=== PATIENT | female | born 1995 | race African-American/Black ===

== ENCOUNTER 2019-03-08 13:27 | Emergency (ER) | payer MEDICAID ==
[2019-03-08] MEDS ORDERED: KETOROLAC TROMETHAMINE INJ/PF 30 MG/1 ML SDV IV ONE (14:17)
--- NOTE | 2019-03-08 14:17 | ER Document Report ---
ED Medical Screen (RME) - General Chief Complaint: Headache Stated Complaint: HEADACHE Time Seen by Provider: 03/08/19 14:12 Notes: Patient is a 23-year-old female presents to the emergency department for generalized headache for the last 24 hours. Patient is 6 days status post vaginal delivery. States during her she had no problems with her blood pressure, denies any history of eclampsia or preeclampsia. Patient denies any history of migraines or recurrent headaches. Patient is complaining of generalized nausea with generalized headache "all over". GENERAL: Alert, interacts well. No acute distress. HEAD: Normocephalic, atraumatic. EYES: Pupils equal, round, and reactive to light. Extraocular movements intact. NECK: Full range of motion. Supple. Trachea midline. I have greeted and performed a rapid initial assessment of this patient. A comprehensive ED assessment and evaluation of the patient, analysis of test results and completion of the medical decision making process will be conducted by additional ED providers. I have specifically instructed the patient or family members with the patient to immediately return to any nursing staff should anything change in the patient's condition or with their chief complaint. No nuchal rigidity noted This medical record was dictated with voice recognizing software. There may be grammatical, syntax errors that are unintended. TRAVEL OUTSIDE OF THE [place] IN LAST 30 DAYS: No - Related Data Allergies/Adverse Reactions: No Known Allergies Allergy (Verified 03/08/19 13:32) Physical Exam - Vital signs Vitals: Temp Pulse Resp BP Pulse Ox 98.0 F 102 H 18 150/88 H 100 03/08/19 13:33 03/08/19 13:33 03/08/19 13:33 03/08/19 13:33 03/08/19 13:33 Course - Vital Signs Vital signs: Temp Pulse Resp BP Pulse Ox 98.0 F 102 H 18 150/88 H 100 03/08/19 13:33 03/08/19 13:33 03/08/19 13:33 03/08/19 13:33 03/08/19 13:33
[2019-03-08] MEDS ORDERED: METOCLOPRAMIDE HCL INJ/PF 10 MG/2 ML SDV IV ONE (14:18)
[2019-03-08 16:15] LABS: ABSOLUTE EOSINOPHILS # (AUTO) 0.1 10^3/uL (0.0-0.6); ABSOLUTE LYMPHOCYTES (AUTO) 2.4 10^3/uL (0.5-4.7); ABSOLUTE MONOCYTES (AUTO) 0.8 10^3/uL (0.1-1.4); ABSOLUTE NEUT (AUTO) 7.5 10^3/uL (1.7-8.2); BASOPHILS % (AUTO) 0.4 % (0-2); EOSINOPHILS % (AUTO) 1.2 % (0-6); HEMATOCRIT 36.1 % (36.0-47.0); HEMOGLOBIN 12.1 g/dL (12.0-15.5); LYMPHOCYTES % (AUTO) 22.3 % (13-45); MEAN CORPUSCULAR HEMOGLOBIN 28.8 pg (27.0-33.4); MEAN CORPUSCULAR HGB CONC 33.5 g/dL (32.0-36.0); MEAN CORPUSCULAR VOLUME 86 fl (80-97); MONOCYTES % (AUTO) 7.4 % (3-13); PLATELET COUNT 227 10^3/uL (150-450); SEGMENTED NEUTROPHILS % (AUTO) 68.7 % (42-78); TOTAL CELLS COUNTED % (AUTO) 100 %; WHITE BLOOD COUNT 10.9 10^3/uL (4.0-10.5)
[2019-03-08 16:32] LABS: ALANINE AMINOTRANSFERASE 36 U/L (9-52); ALBUMIN 3.6 g/dL (3.5-5.0); ALKALINE PHOSPHATASE 82 U/L (38-126); ANION GAP 7 (5-19); ASPARTATE AMINO TRANSFERASE 28 U/L (14-36); BILIRUBIN,DIRECT 0.3 mg/dL (0.0-0.4); BILIRUBIN,TOTAL 0.7 mg/dL (0.2-1.3); BLOOD UREA NITROGEN 12 mg/dL (7-20); CALCIUM 9.4 mg/dL (8.4-10.2); CARBON DIOXIDE 27 mmol/L (22-30); CHLORIDE 105 mmol/L (98-107); GLUCOSE 86 mg/dL (75-110); POTASSIUM 3.8 mmol/L (3.6-5.0); SODIUM 139.3 mmol/L (137-145); TOTAL PROTEIN 6.9 g/dL (6.3-8.2)
[2019-03-08 16:38] LABS: APPEARANCE,URINE SLIGHTLY-CLOUDY; BILIRUBIN,URINE NEGATIVE (NEGATIVE); COLOR,URINE YELLOW; GLUCOSE, URINE NEGATIVE (NEGATIVE); KETONES,URINE 20 mg/dL (NEGATIVE); LEUKOCYTE ESTERASE,URINE LARGE (NEGATIVE); NITRITE,URINE NEGATIVE (NEGATIVE); PROTEIN,URINE NEGATIVE (NEGATIVE)
--- NOTE | 2019-03-08 16:58 | ER Document Report ---
ED Headache - General Chief Complaint: Headache Stated Complaint: HEADACHE Time Seen by Provider: 03/08/19 14:12 Information source: Patient Notes: Patient is a 23-year-old female status post normal vaginal delivery this past Sunday who presents with a headache starting yesterday to the frontal region. It came on slowly. Throbbing in quality, constant, no aggravating or relieving factors. Nausea without vomiting. No blurry vision or neck pain. No weakness or numbness. Patient still has some minimal vaginal bleeding and cramping consistent with delivery. No history of headaches. No recent trauma. Patient had no elevated blood pressure with . TRAVEL OUTSIDE OF THE [place] IN LAST 30 DAYS: No - Related Data Allergies/Adverse Reactions: No Known Allergies Allergy (Verified 03/08/19 13:32) Past Medical History - Social History Smoking Status: Never Smoker Frequency of alcohol use: None Drug Abuse: None Family History: Reviewed & Not Pertinent Patient has suicidal ideation: No Patient has homicidal ideation: No Renal/ Medical History: Denies: Hx Peritoneal Dialysis Review of Systems - Review of Systems Constitutional: denies: Fever EENT: denies: Eye discharge, Nose discharge Cardiovascular: denies: Chest pain Respiratory: denies: Short of breath Gastrointestinal: denies: Vomiting Genitourinary: denies: Dysuria Musculoskeletal: denies: Leg swelling Skin: Other - no hives. denies: Rash Neurological/Psychological: Other - no slurred speech -: Yes All other systems reviewed and negative Physical Exam - Vital signs Vitals: Temp Pulse Resp BP Pulse Ox 98.0 F 102 H 18 150/88 H 100 03/08/19 13:33 03/08/19 13:33 03/08/19 13:33 03/08/19 13:33 03/08/19 13:33 Notes: Reviewed vital signs and nursing note as charted by RN. CONSTITUTIONAL: Alert and oriented and responds appropriately to questions. Well-appearing; well-nourished HEAD: Normocephalic; atraumatic EYES: PERRL; full extraocular range of motion; no nystagmus ENT: Normal nose; no rhinorrhea; moist mucous membranes; pharynx without lesions noted NECK: Supple without meningismus; full painless range of motion; non-tender; no cervical lymphadenopathy, no masses CARD: Regular rate and rhythm; no murmurs; symmetric distal pulses RESP: Normal chest excursion without splinting or tachypnea; breath sounds clear and equal bilaterally ABD/GI: Normal bowel sounds; non-distended; soft, non-tender; no palpable organomegaly or masses BACK: The back appears normal and is non-tender to palpation EXT: Normal ROM in all joints; non-tender to palpation; no edema present SKIN: No acute lesions noted NEURO: CN 2-12 intact; 5/5 bilateral upper and lower extremity strength with sensation intact to light touch PSYCH: The patient's mood and manner are appropriate. Grooming and personal hygiene are appropriate. Course - Re-evaluation Re-evalutation: Given the above history and physical examination in this very well-appearing female with a normal spontaneous vaginal delivery with no hypertension of who presents with a slow development of a frontal headache without blurry vision, fever, or focal neurological deficit, we will obtain an MRI/MRV, basic labs, urine analysis to check for protein, liver panel, and reassess. 03/08/19 16:58 Labs as recorded. No transaminitis. No protein in the urine. Patient does have a positive leukocyte Estrace mixed with red blood cells and white blood cells. No symptoms of dysuria. We will send a urine culture. I spoke to the radiologist Dr. Burnham who recommended performing an MRI/MRA typing in the MRI instructions to perform an MRV. I have called the residential service technician to discuss this. Given the above history and physical I do believe acute bacterial meningitis, subarachnoid hemorrhage, acute angle-closure glaucoma, all to be extremely unlikely. 03/08/19 17:43 Patient is unwilling to go through the MRI scanner. I have provided Ativan and she still states she is unable to have this test performed. I have explained the seriousness of this possible condition. She understands. She still refuses to go back to the MRI machine. I have called the radiologist once again and discussed the case. He has asked me to order a CTA of the head with a venogram as well performed. Pt signed out to my partner for further care. - Vital Signs Vital signs: Temp Pulse Resp BP Pulse Ox 97.5 F 77 17 120/82 100 03/08/19 19:31 03/08/19 19:31 03/08/19 19:31 03/08/19 19:31 03/08/19 19:31 - Laboratory Result Diagrams: 03/08/19 15:36 03/08/19 15:36 Laboratory results interpreted by me: 03/08/19 03/08/19 15:36 15:36 WBC 10.9 H Urine Ketones 20 H Urine Blood LARGE H Urine Urobilinogen 4.0 H Ur Leukocyte Esterase LARGE H Discharge - Discharge Clinical Impression: Headache Condition: Good Disposition: HOME, SELF-CARE Instructions: Headache ([facility]) Prescriptions: Butalb/Acetaminophen/Caffeine [Fioricet (50-325-40 mg) Tablet] 1 tab PO Q6H PRN #30 tab PRN Reason: Promethazine HCl [Phenergan 25 mg Tablet] 25 mg PO QID PRN #30 tablet PRN Reason:
[2019-03-08] MEDS ORDERED: LORAZEPAM INJ 2 MG/1 ML VIAL IV ONE (17:19)
[2019-03-08] MEDS ORDERED: NORMAL SALINE 1000 ML 1,000 ML IV ONE (17:59)
[2019-03-08] MEDS ORDERED: MORPHINE SULFATE 10 MG/ML INJ IV ONE (18:13)
[2019-03-08] MEDS ORDERED: ONDANSETRON HCL INJ/PF 4 MG/2 ML SDV IV ONE (18:53)
--- NOTE | 2019-03-08 18:58 | RADIOLOGY REPORT (SQ) ---
EXAM DESCRIPTION: CTA HEAD COMPLETED DATE/TIME: 03/08/2019 6:39 pm REASON FOR STUDY: 12; with CTV venogram COMPARISON: None. TECHNIQUE: Post IV contrast scanning, thin section axial imaging through the brain to evaluate the a rterial and venous structures. Source and MIP images are saved and reviewed on PACS. Advanced 3D imaging as volume-rendering, MIPs, SSD performed? yes All CT scanners at this facility use dose modulation, iterative reconstruction, and/or weight based d osing when appropriate to reduce radiation dose to as low as reasonably achievable (ALARA). [facility]: Dose Right [facility]: CareDose [facility]: Dose Right [facility]: Teradose 4D [facility]: [facility] CONTRAST TYPE AND DOSE: contrast/concentration: Isovue 350.00 mg/ml; Total Contrast Delivered: 70.0 ml; Total Saline Delivered: 75.0 ml RENAL FUNCTION: None required. The patient is less than 50 years old. LIMITATIONS: None. FINDINGS: [place]: The anterior, middle, posterior cerebral arteries are all patent. No ev idence of aneurysm or focal stenosis. POSTERIOR CIRCULATION: The distal vertebral arteries are patent as is the basilar artery. No aneurysm . DURAL SINUSES: The major dural sinuses demonstrate normal opacification without evidence of thrombos is. BRAIN: No gross enhancing lesions as visualized. BONES: Intact as visualized. SINUSES: No fluid or mucosal thickening. OTHER: No other significant finding. IMPRESSION: Normal morphology and appearance of the [place] of [place]. No evidence of dural venous t hrombosis. Grossly normal CT appearance of the brain. TECHNICAL DOCUMENTATION: JOB ID: [id number] Quality ID # [id number]: Final reports with documentation of one or more dose reduction techniques (e.g., Au tomated exposure control, adjustment of the mA and/or kV according to patient size, use of iterative reconstruction technique) 2010 [employer]- All Rights Reserved Reading location - IP/workstation name: [email or web address]
--- NOTE | 2019-03-08 19:16 | ER Document Report ---
ED Headache - General Chief Complaint: Headache Stated Complaint: HEADACHE Time Seen by Provider: 03/08/19 14:12 Notes: 23-year-old female who is . Was signed out to me by my partner Dr. Hickman. Patient was pending a CT scan of the brain to rule out venous thrombus. Please see his note for HPI and review of systems. TRAVEL OUTSIDE OF THE [place] IN LAST 30 DAYS: No - Related Data Allergies/Adverse Reactions: No Known Allergies Allergy (Verified 03/08/19 13:32) Past Medical History - General Information source: Patient - Social History Smoking Status: Never Smoker Frequency of alcohol use: None Drug Abuse: None Family History: Reviewed & Not Pertinent Patient has suicidal ideation: No Patient has homicidal ideation: No Renal/ Medical History: Denies: Hx Peritoneal Dialysis Review of Systems - Review of Systems Neurological/Psychological: Headaches. denies: Lost consciousness, Numbness, Tingling -: Yes All other systems reviewed and negative Physical Exam - Vital signs Vitals: Temp Pulse Resp BP Pulse Ox 98.0 F 102 H 18 150/88 H 100 03/08/19 13:33 03/08/19 13:33 03/08/19 13:33 03/08/19 13:33 03/08/19 13:33 - Neurological Neuro grossly intact: Yes Cognition: Normal Orientation: AAOx4 Kimberly Coma Scale Eye Opening: Spontaneous [place] Coma Scale Verbal: Oriented [place] Coma Scale Motor: Obeys Commands [place] Coma Scale Total: 15 Speech: Normal Cranial nerves: Normal Cerebellar coordination: Normal Additional motor exam normals: Equal document manager. No: Weakness Course - Re-evaluation Re-evalutation: 03/08/19 19:12 The patient was signed out to me by Dr. Hickman pending diagnostics. I taken the patient over. Patient was given additional pain medicine. Concern was for dural venous thrombosis. She could not tolerate MRI therefore we got a CT venous study which was negative. She is feeling much better after IV fluids pain and nausea medicine. She is comfortable going home. I spoke with her about when to return. We spoke about lumbar puncture. At this time I do not believe she has a subarachnoid hemorrhage there is no thunderclap no rapid onset not worst headache of life. However the next logical step would be to perform a lumbar puncture. Spoke with the patient about this she certainly does not want this at this time I gave her the information about morbidity mortality associated with subarachnoid hemorrhage. Verbalized understanding she is comfortable going home. We will return if the discomfort returns. Or any other other issue of concern - Vital Signs Vital signs: Temp Pulse Resp BP Pulse Ox 98.0 F 102 H 18 136/94 H 100 03/08/19 13:33 03/08/19 13:33 03/08/19 13:33 03/08/19 17:04 03/08/19 13:33 - Laboratory Result Diagrams: 03/08/19 15:36 03/08/19 15:36 Laboratory results interpreted by me: 03/08/19 03/08/19 15:36 15:36 WBC 10.9 H Urine Ketones 20 H Urine Blood LARGE H Urine Urobilinogen 4.0 H Ur Leukocyte Esterase LARGE H Discharge - Discharge Clinical Impression: Headache Qualifiers: Headache type: other headache syndrome Qualified Code(s): G44.89 - Other headache syndrome Condition: Good Disposition: HOME, SELF-CARE Instructions: Headache ([facility]) Prescriptions: Butalb/Acetaminophen/Caffeine [Fioricet (50-325-40 mg) Tablet] 1 tab PO Q6H PRN #30 tab PRN Reason: Promethazine HCl [Phenergan 25 mg Tablet] 25 mg PO QID PRN #30 tablet PRN Reason:
[2019-03-08 19:35] VITALS: BP 120/82
== END 2019-03-08 19:34 | disposition home or self-care (01) ==
LOC: ER 13:27
DX: O90.9 Complication of the puerperium, unspecified (principal); R51 Headache; R11.0 Nausea
CPT/HCPCS: 99284; 96361; 96374; 96375; 36415; 87086; 85025; 87088; 80053; 81001; 87186; 70496; J1885; J2765; J2270; J2060; J2405; J7030